=== PATIENT | male | born 1965 | race African-American/Black ===

== ENCOUNTER 2016-08-23 16:27 | Emergency (ER) | payer OTHER ==
[2016-08-23 16:48] LABS: INFLUENZA A NEG (NEG); INFLUENZA B NEG (NEG)
== END 2016-08-23 17:02 | disposition home or self-care (01) ==
LOC: CFTX 16:27
PROVIDERS: Physician Assistant
DX: J06.9 Acute upper respiratory infection, unspecified (principal); E11.9 Type 2 diabetes mellitus without complications; I10 Essential (primary) hypertension
CPT/HCPCS: 87804; 99282